=== PATIENT | male | born 1960 | race Caucasian/White ===

== ENCOUNTER 2019-05-28 09:36 | Emergency (ER) | payer SELFPAY ==
[~2019-05-28] VITALS: Ht 180.3 cm; Wt 81.0 kg
[2019-05-28 09:43] VITALS: BP 107/86
== END 2019-05-28 12:30 | disposition left against medical advice (07) ==
LOC: ER 10:55
DX: G89.29 Other chronic pain (principal); M25.551 Pain in right hip; Z76.5 Malingerer [conscious simulation]; Z53.21 Procedure and treatment not carried out due to patient leaving prior to being seen by health care provider